=== PATIENT | male | born 1955 | race Caucasian/White ===

== ENCOUNTER 2017-11-08 16:30 | Emergency (ER) | payer OTHER ==
[~2017-11-08] VITALS: Ht 188 cm; Wt 108.9 kg
--- NOTE | 2017-11-08 17:21 | RADIOLOGY REPORT ---
EXAMINATION: XR ANKLE, RIGHT CLINICAL INFORMATION: Status post fall. COMPARISON: None TECHNIQUE: 4 views of the right ankle. FINDINGS: Acute comminuted fracture mid to distal shaft right fibula with half shaft width lateral displacement of the distal fragment. Butterfly fragment noted along the posterior aspect. Cortical irregularity along the posterior aspect distal tibia suspicious for a subtle nondisplaced fracture. Tiny ossific densities noted adjacent to the medial malleolus. Subtle cortical avulsion cannot be excluded. Widening of the tibiotalar joint space. Intact talar dome. Mild soft tissue swelling surrounding the ankle joint. IMPRESSION: Acute comminuted fracture mid to distal shaft right fibula. There is half shaft width lateral displacement of the distal fragment. Nondisplaced fracture posterior distal tibia. Abnormal ankle mortise. Widening of the medial tibiotalar joint space.
--- NOTE | 2017-11-08 19:04 | ED UPPER/LOWER EXTREMITY COMPL ---
History of Present Illness General Chief Complaint: Lower Extremity Injury Stated Complaint: PT FELL POSSIBLE BREAK INTHE RT LEG Source: patient Exam Limitations: no limitations Vital Signs & Intake/Output Vital Signs & Intake/Output Vital Signs Date Time Temp Pulse Resp B/P B/P Pulse O2 O2 Flow FiO2 Mean Ox Delivery Rate 11/08 2034 97.1 79 16 144/70 94 Room Air 11/08 1905 96 Room Air 11/08 1645 96.8 11/08 1635 96.8 77 24 161/74 98 Room Air Room Air Allergies Coded Allergies: latex (Intermediate, RASH 11/08/17) Reconcile Medications Diltiazem HCl (Cardizem Cd) 300 MG CAP.ER.24H 1 CAP PO DAILY HEART HEALTH ( Reported) Hydrocodone/Acetaminophen (Vicodin 5-300 MG Tablet) 5 MG-300 MG TABLET 1 TAB PO TID PRN PAIN Triage Note: PT TO ED WITH S/P "SLIPPED IN THE MUD, RIGHT ANKLE PAIN". Triage Nurses Notes Reviewed? yes Onset: Abrupt Duration: constant Timing: single episode today Severity: moderate Severity Numbers: 5 HPI: Patient is a 62-year-old male with a past medical history of atrial fibrillation and pulmonary embolism currently on Xarelto and diltiazem, type 2 diabetes hyperlipidemia and hypertension who presents to emergency and that today at approximately 1600 he was walking outside and slipped on the wet grass and twisted his right ankle and since he's been complaining of sharp 7/10 severe right localized ankle pain. Denies any knee or hip pain. Denies any head strike. Skin still intact. (Kedar Swan) Past History Travel History Traveled to [place] past 21 day No Medical History Any Pertinent Medical History? 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 No (Kedar Swan) Review of Systems Review of Systems Constitutional: Reports: no symptoms. EENTM: Reports: no symptoms. Respiratory: Reports: no symptoms. Cardiovascular: Reports: no symptoms. Gastrointestinal/Abdominal: Reports: no symptoms. Genitourinary: Reports: no symptoms. Musculoskeletal: Reports: see HPI, joint pain, joint swelling. Skin: Reports: no symptoms. Neurological/Psychological: Reports: no symptoms. Hematologic/Endocrine: Reports: no symptoms. Immunological: Reports: no symptoms. All Other Systems: Reviewed and Negative (Kedar Swan) Physical Exam Physical Exam General Appearance: no apparent distress, alert, comfortable Head: atraumatic Eyes: Bilateral: normal appearance. Ears, Nose, Throat: hearing grossly normal Neck: normal inspection Cardiovascular/Respiratory: no respiratory distress Peripheral Pulses: 2+ dorsalis pedis (R) Neurologic/Tendon: normal sensation, normal motor functions, normal tendon functions, responds to pain, no evidence tendon injury, no pulse deficit Skin: intact, normal color, warm/dry Comments: Right knee nontender normal inspection full active range of motion Right ankle noted swelling decreased active range of motion and point tenderness , Right foot normal inspection nontender pedal pulse +2 capillary refill less than 2 seconds Right lower extremity dermatomes intact Temperature warm (Kedar Swan) Progress Differential Diagnosis: arterial insufficiency, compartment syndrome, contusion, dislocation, DVT, fracture, gout, septic arthritis, sprain, tendon injury Plan of Care: Patient has concerns of fibula and tibia fracture patient was neurovascularly intact on exam discussed x-ray findings with Zach Shaikh MD who advised patient to be placed in splint and follow up in office tomorrow. Discussed disposition plan with patient who agrees and has no questions patient initially declines pain medications however prior to discharge after splinting was placed by can was administered patient will receive RIDE home Diagnostic Imaging: Viewed by Me: Radiology Read. Radiology Impression: acute abnormality, fracture Comments: PATIENT: TRISTIAN LIMA PRESENT AGE: 62 PATIENT ACCOUNT NO: [id number] : 55 LOCATION: [facility] ORDERING PHYSICIAN: Jimbo Dillon DO (TBS) SERVICE DATE: 11/08/17 EXAM TYPE: RAD - XRY-ANKLE 3 OR MORE VIEWS R EXAMINATION: XR ANKLE, RIGHT CLINICAL INFORMATION: Status post fall. COMPARISON: None TECHNIQUE: 4 views of the right ankle. FINDINGS: Acute comminuted fracture mid to distal shaft right fibula with half shaft width lateral displacement of the distal fragment. Butterfly fragment noted along the posterior aspect. Cortical irregularity along the posterior aspect distal tibia suspicious for a subtle nondisplaced fracture. Tiny ossific densities noted adjacent to the medial malleolus. Subtle cortical avulsion cannot be excluded. Widening of the tibiotalar joint space. Intact talar dome. Mild soft tissue swelling surrounding the ankle joint. IMPRESSION: Acute comminuted fracture mid to distal shaft right fibula. There is half shaft width lateral displacement of the distal fragment. Nondisplaced fracture posterior distal tibia. Abnormal ankle mortise. Widening of the medial tibiotalar joint space. DICTATED BY: Suad León MD DATE/TIME DICTATED:11/08/171713 MANAGER LAUNDRY:IFRAH DATE/TIME TRANSCRIBED:11/08/171713 CONFIDENTIAL, DO NOT COPY WITHOUT APPROPRIATE AUTHORIZATION. <Electronically signed in Other Vendor System> SIGNED BY: Suad León MD 11/08/17 172 (Kedar Swan) Departure Departure Disposition: HOME OR SELF CARE Condition: Stable Clinical Impression Primary Impression: Closed fracture shaft of fibula Secondary Impressions: Fracture of distal end of right tibia Referrals: Panfilo VALLE,George Chapin (PCP/Family) Hawa VALLE,Zach Additional Instructions: As discussed begin using the crutches for nonweightbearing on your right leg begin to elevate THE foot for swelling, begin the prescription of Vicodin for pain, prescription is waiting at [facility] tomorrow please follow up and establish orthopedic for further evaluation treatment, IF symptoms worsen return to emergency room, the splint THAT has been applied to YOU IN THE ER, leave this on at all times until you follow-up with the orthopedic doctor Departure Forms: Customer Survey General Discharge Information Prescriptions: Current Visit Scripts Hydrocodone/Acetaminophen (Vicodin 5-300 MG Tablet) 1 TAB PO TID PRN PAIN #15 TAB (Kedar Swan) PA/MEAT SOAKER Co-Sign Statement Statement: ED Attending supervision documentation- x I saw and evaluated the patient. I have also reviewed all the pertinent lab results and diagnostic results. I agree with the findings and the plan of care as documented in the PA's/MEAT SOAKER's documentation. [] I have reviewed the ED Record and agree with the PA's/MEAT SOAKER's documentation. [] Additions or exceptions (if any) to the PAs/MEAT SOAKER's note and plan are summarized below: [] (Merle VALLE,Ace) Procedures Splinting Location: RIGHT ANKLE Manual Alignment Performed: No Hand-Made Type: orthoglass Splint: sugar-tong, POSTERIOR SPLINT Splint Applied By: splint applied by other Pre-Proc Neuro Vasc Exam: normal Post-Proc Neuro Vasc Exam: normal (Kedar Swan)
[2017-11-08] MEDS ORDERED: VICODIN 5-3001 EACH PO (20:26)
[2017-11-08 20:35] VITALS: BP 144/70
[2017-11-08] MEDS ORDERED: CARDIZEM CD300 M1 PO (20:40)
== END 2017-11-08 21:15 ==
LOC: ERH 16:30
DX: S82.451A Displaced comminuted fracture of shaft of right fibula, initial encounter for closed fracture (principal); S82.301A Unspecified fracture of lower end of right tibia, initial encounter for closed fracture; W01.0XXA Fall on same level from slipping, tripping and stumbling without subsequent striking against object, initial encounter; Y93.01 Activity, walking, marching and hiking; Y92.9 Unspecified place or not applicable
CPT/HCPCS: 73610-RT

== ENCOUNTER → 2017-11-15 | Day surgery (SDC) | payer OTHER ==
[2008-05-29 11:19] VITALS: BP 125/77
[~2017-11-15] MED LIST: CARDIZEM CD300 M1 PO; CRESTOR5 M1 PO; FENOFIBRIC ACI135 M1 PO; FUROSEMIDE20 M1 PO; GLIPIZIDE ER2.5 M1 PO; HYDROCODON-ACE1 EAC6 PO; LANSOPRAZOLE30 M2 PO; MAGNESIUM OXID400 M1 PO; METFORMIN HCL1000 M1 PO; METOPROLOL SUCC50 M2 PO; PERCOCET 10-321 EACH PO; POTASSIUM CHLO20 ME2 PO; VALSARTAN80 M1 PO; VICODIN 5-3001 EACH PO; VITAMIN D250000 UNIT PO; XARELTO20 M2 PO
--- NOTE | 2017-11-17 10:25 | Operative Report ---
Operative/Inv Procedure Report Surgery Date: 11/15/17 Name of Procedure: #1 ORIF right displaced ankle fracture #2 repair syndesmosis ligament tear right ankle Pre-Operative Diagnosis: #1 right bimalleolar ankle fracture #2 syndesmosis ligament disruption Post-Operative Diagnosis: Same Estimated Blood Loss: scant Surgeon/Chair Frame Builder: Hawa VALLE,Zach Anesthesia: laryngeal mask airway, block Implants: Jazmyn Vari-ax 8 hole fibular straight plate Drains: None Specimens: None Tourniquet: 59 minutes Complications: None Condition: Stable Operative Indication: Patient is a 62-year-old man with a history of a slip and fall twisting his right ankle. He was seen in the emergency room and was found to have a displaced bimalleolar ankle fracture with a disruption of the syndesmosis. Patient had a comminuted distal fibular shaft fracture with a posterior butterfly fragment as well as a posterior malleolus fracture and syndesmosis widening. The posterior malleolar fragment did not need to be fixed but I recommended that he have ORIF of the fibula fracture and reduction, fixation/ stabilization of the mortise due to the syndesmosis ligament tear. However risks benefits and expectations were discussed with patient and family and this discussion included risks benefits and expectations of the surgical procedure and nonsurgical. The surgical options included but were not limited to persistent ankle pain, need for substance surgery, infection, nonunion, malunion , DVT/PE and anesthesia risks as well as injury to blood vessel or nerve. Of significance, patient does have a history of DVT and PE for which she was on a chronic anticoagulant. Therefore we needed medical and cardiac clearance which we did obtain. The anticoagulant was held prior to surgery to minimize risk of postop hematoma. They wish to proceed with surgical management Operative/Procedure Note Note: Patient was brought to the operating room and transferred to the operating table. Once under appropriate anesthesia the right lower extremity was prepped and draped in standard fashion. Preoperative IV antibiotics were given prophylactically. Leg was elevated exsanguinated and tourniquet was inflated to 300 mm of pressure. A standard lateral incision was made centered over the fibular shaft fracture first. Incision was taken down to the underlying fracture site. Small fracture hematoma was evacuated. There was significant comminution and the butterfly fragment was found to be very thin shell of bone posteriorly. I did reduce the butterfly fragment to the proximal fragment first and attempted to place an interfragmentary screw here. However, there was significant comminution along the medial aspect of the fibular shaft fracture and the butterfly fragment was such a small shell of bone that I did not feel it provided very much fixation. Same procedure was done for the interfragmentary screw between the distal fragment and the butterfly fragment and again the screw fell into a defect along the most medial aspect of the fibular fracture anteriorly and again did not provide any significant fixation into the butterfly fragment. Therefore elected to bridge this area and reduce the butterfly fragment and held in place with 2 clamps. One clamp held the 8 hole Varivax straight plate to the fibula with the reduced fracture. I was able to place 3 bicortical screws proximally and distally with the 2 holes over the fracture site left in place and unfilled. I was satisfied with the reduction. I was able to tuck in the butterfly fragment within the surgical construct to possibly improve healing time. Copious irrigation of the wound followed. Through a small separate incision I used the drill to overdrill the fibula for this. Insertion of a syndesmosis screw. It was overdrilled with a 3.5 mm drill bit the tibial portion of this was drilled with a 2.6. Measurements were taken and then the appropriate length syndesmosis screw was placed. I stressed the repair site under fluoroscopy. I was satisfied with the stability of the mortise. There was no further widening of the mortise and no impingement of hardware. Copious irrigation of the wound followed. I checked the fixation of the fibular shaft component of the construct in 2 views. I confirm that the syndesmosis screw was in the center of the fibula on the lateral view. After irrigation was completed I closed the soft tissues over the plate. This was followed by subcutaneous tissue closure with 3-0 Vicryl and skin was closed with a interrupted nylon suture. Appropriate dressings were applied and patient was awakened and taken to recovery in good condition. Tourniquet was deflated following the application of the dressings and splint. Good capillary refill was restored. No intraoperative complications. Discharge Disposition: PACU
== END ==
LOC: STS 02:23
DX: S82.841A Displaced bimalleolar fracture of right lower leg, initial encounter for closed fracture (principal); S93.431A Sprain of tibiofibular ligament of right ankle, initial encounter; W01.0XXA Fall on same level from slipping, tripping and stumbling without subsequent striking against object, initial encounter; I48.91 Unspecified atrial fibrillation; Z79.01 Long term (current) use of anticoagulants; E11.9 Type 2 diabetes mellitus without complications
CPT/HCPCS: C1713; C9399; J0131; J0690; J2250

== ENCOUNTER → 2018-01-07 | Day surgery (SDC) | payer OTHER ==
[~2018-01-07] VITALS: Ht 188 cm; Wt 104.3 kg
--- NOTE | 2018-01-07 10:32 | Operative Report ---
Operative/Inv Procedure Report Surgery Date: 01/07/18 Name of Procedure: Planned removal of right ankle syndesmotic screw Pre-Operative Diagnosis: History of right ankle fracture/syndesmosis ligament tear. Status post ORIF and repair of syndesmosis Post-Operative Diagnosis: Same Estimated Blood Loss: scant Surgeon/Engineering Teacher: Hawa VALLE,Zach Anesthesia: laryngeal mask airway Drains: None Specimens: Screw Microbiology: None Tourniquet: None used Complications: None Condition: Stable Operative Indication: Patient is a 62-year-old man who has a history of a severe right ankle fracture and syndesmosis ligament disruption. He underwent ORIF and placement of syndesmotic screw. Today he is here for planned removal of the syndesmosis screw to facilitate rehabilitation and weightbearing. We discussed risks benefits and expectations of surgical procedure which included but was not limited to persistent ankle discomfort, stiffness, infection, anesthesia risks. We also discussed the possibility that if the ankle appeared to be unstable after removing the syndesmosis screw then it would need to be addressed with screw insertion though this was very unlikely. Patient wished to proceed with the planned procedure Operative/Procedure Note Note: Patient was brought to the operating room and transferred to the operating table. Once under appropriate anesthesia the right lower extremity was prepped and draped in standard fashion. Preoperative IV antibiotics were given prophylactically. A small stab incision was made over the previous screw insertion incision. This was approximately a centimeter to 1-1/2 cm in length. The incision was taken down bluntly to the area of the screw which was visualized. The screw was then removed. I made sure the entire screw was removed. There was no evidence of fracture of the screw itself. Obtained fluoroscopic images to confirm stability of the ankle before and after removal of screw. There was no evidence of instability or widening of the syndesmosis. Copious irrigation of the incision site followed. I then closed it with interrupted nylon suture. Appropriate dressings were applied and patient was awakened and taken the recovery room in good condition. No intraoperative complications. Blood loss was minimal. Discharge Disposition: PACU
== END ==
LOC: STS 02:19
DX: Z47.2 Encounter for removal of internal fixation device (principal); Z87.81 Personal history of (healed) traumatic fracture; Z86.718 Personal history of other venous thrombosis and embolism; Z79.01 Long term (current) use of anticoagulants; E11.9 Type 2 diabetes mellitus without complications; Z79.84 Long term (current) use of oral hypoglycemic drugs; K21.9 Gastro-esophageal reflux disease without esophagitis
CPT/HCPCS: J0690; J2250